=== PATIENT | female | born 1990 | race African-American/Black ===

== ENCOUNTER 2019-02-03 22:57 | Inpatient (IN) | payer OTHER, MEDICAID ==
[~2019-02-03] VITALS: Ht 167.6 cm; Wt 81.6 kg
[2019-02-04] MEDS ORDERED: AMPICILLIN SOD/SULBACTAM NA 3 G in SODIUM CHLORIDE 0.9% 100 ML IV SCH ×2 (04:45→12:30)
[2019-02-04] MEDS ORDERED: MORPHINE SULFATE 4 MG/ML CPJ (NOT FOR IM USE) IV ONE (04:45)
[2019-02-04 05:14] LABS: BASOPHILS % 0.5 % (0.0-2.0); EOSINOPHILS % 0.3 % (0.0-5.0); HEMATOCRIT. 37.2 % (36.0-48.0); HEMOGLOBIN. 12.6 g/dL (12.0-16.0); LYMPHOCYTES % 25.9 % (20.0-50.0); MEAN CORPUSCULAR HEMOGLOBIN 32.7 pg (28.0-32.0); MEAN CORPUSCULAR VOLUME 96.8 fL (81.0-99.0); MEAN PLATELET VOLUME 8.1 fl (7.4-10.4); MONOCYTES % 9.9 % (2.0-8.0); NEUTROPHILS % 63.4 % (40.0-76.0); PLATELET 265 x1000/uL (130-400); RED BLOOD CELL COUNT 3.84 mill/uL (4.2-5.4); RED CELL DISTRIBUTION WIDTH 12.7 % (11.6-14.6)
[2019-02-04 05:15] LABS: CHLORIDE 102 mEq/L (98-107)
[2019-02-04 10:45] VITALS: BP 117/63
[2019-02-04] MEDS ORDERED: KETOROLAC 60MG/2ML VIAL IM ONE (11:30)
[2019-02-04] MEDS ORDERED: ONDANSETRON HCL 4MG/2ML INJ IV PRN (11:30)
[2019-02-04] MEDS ORDERED: ACETAMINOPHEN 325MG TABLET PO PRN (11:30)
[2019-02-04] MEDS ORDERED: KETOROLAC 30MG/ML VIAL IV PRN (11:30)
[2019-02-04 12:00] VITALS: BP 142/96
[2019-02-04 13:43] LABS: CLARITY URINE CLEAR (CLEAR); COLOR URINE YELLOW (YELLOW); KETONES URINE NEGATIVE (NEGATIVE); LEUKOCYTE ESTERASE URINE TRACE (NEGATIVE); NITRITE URINE NEGATIVE (NEGATIVE); OCCULT BLOOD URINE NEGATIVE (NEGATIVE); PROTEIN URINE NEGATIVE (NEGATIVE); SPECIFIC GRAVITY URINE 1.012 (1.005-1.030)
[2019-02-04] MEDS: HYDROCODONE/ACETAMINOPHEN 5/325MG TABLET PO PRN ×2 (13:49→20:22)
[2019-02-04] MEDS ORDERED: VANCOMYCIN 1 G PREMIX 200 ML IV SCH (15:00)
[2019-02-04 16:00] VITALS: BP 128/81
[2019-02-04] MEDS: MORPHINE SULFATE 4 MG/ML CPJ (NOT FOR IM USE) IV PRN ×2 (17:13→23:35)
[2019-02-04 20:00] VITALS: BP 120/71
[2019-02-04] MEDS ORDERED: IOHEXOL-300 100 ML BOTTLE ONE (21:20)
[2019-02-04] MEDS: AMPICILLIN SOD/SULBACTAM NA 3 G in SODIUM CHLORIDE 0.9% 100 ML IV SCH (22:03)
[2019-02-05] VITALS: BP 127/90
[2019-02-05] MEDS ORDERED: VANCOMYCIN 1 G PREMIX 200 ML IV SCH (01:00)
[2019-02-05] MEDS: VANCOMYCIN 1 G PREMIX 200 ML IV SCH ×3 (01:01→17:00)
[2019-02-05 04:00] VITALS: BP 119/80
[2019-02-05] MEDS: AMPICILLIN SOD/SULBACTAM NA 3 G in SODIUM CHLORIDE 0.9% 100 ML IV SCH ×3 (06:52→14:58)
[2019-02-05 07:21] LABS: HCG SCREEN NEGATIVE
[2019-02-05 08:00] VITALS: BP 127/77
[2019-02-05] MEDS: HYDROCODONE/ACETAMINOPHEN 5/325MG TABLET PO PRN (10:01)
[2019-02-05 12:00] VITALS: BP 103/59
[2019-02-05] MEDS ORDERED: LIDOCAINE HCL/EPINEPHRINE 1%-EPI 1:100,000 20 ML VIAL INFIL ONE (12:30)
[2019-02-05] MEDS ORDERED: LIDOCAINE HCL/EPINEPHRINE 1%-EPI 1:100,000 20 ML VIAL INFIL NR (13:00)
[2019-02-05] MEDS: MORPHINE SULFATE 4 MG/ML CPJ (NOT FOR IM USE) IV PRN (14:00)
[2019-02-05 16:00] VITALS: BP_SYST 108; BP_SYST 127; BP_DIAS 68; BP_DIAS 89
[2019-02-05 16:34] VITALS: BP 108/61
== END 2019-02-05 16:00 | disposition home or self-care (01) | DRG 383 ==
LOC: ER 22:57 → 6EST 02-04 05:18 → ENRESERV 02-04 09:55
PROVIDERS: ADMIT Internal Medicine; ATTEND Internal Medicine
PROC: 0JBG0ZZ Excision of Right Lower Arm Subcutaneous Tissue and Fascia, Open Approach (ICD-10-PCS; principal; 2019-02-05)
DX: L03.113 Cellulitis of right upper limb (principal); W54.0XXA Bitten by dog, initial encounter; Y93.89 Activity, other specified; Y92.89 Other specified places as the place of occurrence of the external cause; Y99.8 Other external cause status
CPT/HCPCS: 36415; 73201; 83605; 84703; 87070; 87075; 87076; 87077; 99285; J0295; J2270; J2405; J3370; J3490; J7050; Q9967